=== PATIENT | male | born 1985 | race American Indian/Alaskan Native ===

== ENCOUNTER 2018-08-19 01:31 | Emergency (ER) | payer SELFPAY ==
--- NOTE | 2018-08-19 02:34 | XRay Report ---
FINAL REPORT EXAM: XR CHEST ROUTINE 2V HISTORY: Chest Pain TECHNIQUE: PA and lateral views of the chest were submitted. FINDINGS: The heart size and vascularity appear normal. The lungs are clear. Pleural fluid is not seen. The bon es and soft tissues appear well maintained. IMPRESSION: No acute cardiopulmonary process.
[2018-08-19 02:40] LABS: Basophils # (Auto) 0.1 K/mm3 (0.0-0.1); Basophils % (Auto) 0.8 % (0.0-1.8); Eosinophils # (Auto) 0.1 K/mm3 (0.0-0.4); Eosinophils % (Auto) 1.7 % (0.0-4.3); Hematocrit 44.9 % (35.5-45.6); Hemoglobin 14.8 gm/dl (11.8-15.2); Lymphocytes # (Auto) 2.6 K/mm3 (1.2-5.4); Lymphocytes % (Auto) 30.3 % (13.4-35.0); Mean Corpuscular HGB Conc 33 % (32-34); Mean Corpuscular Volume 86 fl (84-94); Monocytes # (Auto) 0.6 K/mm3 (0.0-0.8); Monocytes % (Auto) 7.5 % (0.0-7.3); Platelet Count 208 K/mm3 (140-440); Red Blood Count 5.21 M/mm3 (3.65-5.03); Red Cell Distribution Width 14.9 % (13.2-15.2)
[2018-08-19 02:57] LABS: BUN/Creatinine Ratio 12; Blood Urea Nitrogen 13 mg/dL (9-20); Hemolysis Index 42
--- NOTE | 2018-08-19 04:14 | Emergency Department Report ---
ED Chest Pain HPI - General Chief Complaint: Chest Pain Stated Complaint: CHEST PAIN DIFFICULTY BREATHING Time Seen by Provider: 08/19/18 04:13 Source: patient, family Mode of arrival: Ambulatory Limitations: No Limitations - History of Present Illness Initial Comments: This is a 32-year-old male here report that he has chest pain that began approximately 2 hours ago. He said he is had similar pain in the past but is different. He reports that he has some shortness of breath which she did not tell them in triage area. Patient has a history of asthma but denies any coughing or wheezing. Denies any fever or chills or nausea or vomiting. Pain is located to mid chest. Pain is intermittent and no alleviating factors and no exacerbating factors. Denies pain with inspiration. Denies any recent long distance travel, convalescent period, history of blood clots or family history of blood clot. Denies taking any hormones at any recent surgery MD Complaint: chest pain -: Last night Onset: during rest Pain Location: substernal Pain Radiation: none Severity: moderate Severity scale (0 -10): 6 Quality: heaviness, squeezing Consistency: intermittent Improves With: nothing Worsens With: nothing Context: other (unknown) re: denies: nausea, vomting, diaphoresis, dyspnea, sense of impending doom Other Symptoms: denies: cough, fever, syncope, rash, acid taste in mouth, leg swelling, palpitations, burping Treatments Prior to Arrival: none Aspirin use within the Past 7 Days: (0) No - Related Data On Oral Contraceptives: No Previous Rx's Medication Instructions Recorded Last Taken Type Ibuprofen [Motrin] 800 mg PO Q8HR PRN #12 tablet 08/19/18 Unknown Rx Allergies Allergy/AdvReac Type Severity Reaction Status Date / Time No Known Allergies Allergy Unverified 08/19/18 01:55 Heart Score - HEART Score History: Slightly suspicious EKG: Normal Age: < 45 Risk factors: No known risk factors Troponin: < normal limit HEART Score: 0 - Critical Actions Critical Actions: 0-3 pts:0.9-1.7%risk of adverse cardiac event.Candidate for discharge ED Review of Systems ROS: Stated complaint: CHEST PAIN DIFFICULTY BREATHING Other details as noted in HPI Constitutional: denies: chills, fever Eyes: denies: eye discharge ENT: denies: ear pain, throat pain, congestion Respiratory: shortness of breath, SOB with exertion, SOB at rest. denies: cough, stridor, wheezing Cardiovascular: chest pain. denies: palpitations, dyspnea on exertion, edema, syncope Gastrointestinal: denies: abdominal pain, nausea, vomiting, diarrhea, constipation Musculoskeletal: denies: back pain, arthralgia, myalgia Skin: denies: rash Neurological: denies: headache ED Past Medical Hx - Past Medical History Previous Medical History?: Yes Hx Asthma: Yes - Surgical History Past Surgical History?: No - Family History Family history: hypertension - Social History Smoking Status: Never Smoker Substance Use Type: None - Medications Home Medications: Home Medications Medication Instructions Recorded Confirmed Last Taken Type Ibuprofen [Motrin] 800 mg PO Q8HR PRN #12 tablet 08/19/18 Unknown Rx ED Physical Exam - General Limitations: No Limitations General appearance: alert, in no apparent distress - Head Head exam: Present: atraumatic (normal exam), normocephalic, normal inspection, other - Eye Eye exam: Present: normal appearance, PERRL, EOMI Pupils: Present: normal accommodation - ENT ENT exam: Present: normal exam, normal orophraynx, mucous membranes moist, TM's normal bilaterally, normal external ear exam - Neck Neck exam: Present: normal inspection, full ROM. Absent: tenderness, lymphadenopathy - Respiratory Respiratory exam: Present: normal lung sounds bilaterally. Absent: respiratory distress, wheezes, rales, rhonchi, stridor, chest wall tenderness, accessory muscle use, prolonged expiratory - Cardiovascular Cardiovascular Exam: Present: regular rate, normal rhythm, normal heart sounds. Absent: systolic murmur, diastolic murmur - GI/Abdominal GI/Abdominal exam: Present: soft, normal bowel sounds. Absent: distended, tenderness, guarding, rebound, rigid - Extremities Exam Extremities exam: Present: normal inspection, full ROM, normal capillary refill, other (No cce. + 2 pulses in all extremities, no neurovascular compromise). Absent: tenderness, pedal edema, joint swelling, calf tenderness - Back Exam Back exam: Present: normal inspection, full ROM, other (ambulates without any difficulties). Absent: tenderness, CVA tenderness (R), CVA tenderness (L), muscle spasm, rash noted - Neurological Exam Neurological exam: Present: alert, oriented X3, normal gait, reflexes normal. Absent: motor sensory deficit - Psychiatric Psychiatric exam: Present: normal affect, normal mood - Skin Skin exam: Present: warm, dry, intact, normal color. Absent: rash ED Course Vital Signs 08/19/18 08/19/18 01:41 01:52 Temperature 97.4 F L 97.4 F L Pulse Rate 76 80 Respiratory 18 18 Rate Blood Pressure 117/64 117/64 O2 Sat by Pulse 97 97 Oximetry - Reevaluation(s) Reevaluation #1: 08/19/18 04:21 Patient is currently stable. Lab work is stable. He reported when he had chest pain he was having shortness of breath. D-dimer ordered and awaiting results. No distress at present and chest x-rays negative Reevaluation #2: 08/19/18 05:36 Patient remained stable in d-dimer is negative. EDGARDO score - Edgardo Score Age > 65: (0) No Aspirin use within the Past 7 Days: (0) No 3 or more CAD Risk Factors: (0) No 2 or more Angina events in past 24 hrs: (0) No Known CAD with more than 50% Stenosis: (0) No Elevated Cardiac Markers: (0) No ST Deviation Greater than 0.5mm: (0) No EDGARDO Score: 0 ED Medical Decision Making - Lab Data Result diagrams: 08/19/18 02:05 08/19/18 02:05 Lab Results 08/19/18 08/19/18 Range/Units 02:05 02:05 WBC 8.5 (4.5-11.0) K/mm3 RBC 5.21 H (3.65-5.03) M/mm3 Hgb 14.8 (11.8-15.2) gm/dl Hct 44.9 (35.5-45.6) % MCV 86 (84-94) fl MCH 28 (28-32) pg MCHC 33 (32-34) % RDW 14.9 (13.2-15.2) % Plt Count 208 (140-440) K/mm3 Lymph % (Auto) 30.3 (13.4-35.0) % [place] % (Auto) 7.5 H (0.0-7.3) % Eos % (Auto) 1.7 (0.0-4.3) % Baso % (Auto) 0.8 (0.0-1.8) % Lymph # 2.6 (1.2-5.4) K/mm3 [place] # 0.6 (0.0-0.8) K/mm3 Eos # 0.1 (0.0-0.4) K/mm3 Baso # 0.1 (0.0-0.1) K/mm3 Seg Neutrophils % 59.7 (40.0-70.0) % Seg Neutrophils # 5.1 (1.8-7.7) K/mm3 Sodium 137 (137-145) mmol/L Potassium 4.3 (3.6-5.0) mmol/L Chloride 100.7 (98-107) mmol/L Carbon Dioxide 24 (22-30) mmol/L Anion Gap 17 mmol/L BUN 13 (9-20) mg/dL Creatinine 1.1 (0.8-1.5) mg/dL Estimated GFR > 60 ml/min BUN/Creatinine Ratio 12 % Glucose 102 H (75-100) mg/dL Calcium 9.0 (8.4-10.2) mg/dL Troponin T < 0.010 (0.00-0.029) ng/mL - EKG Data -: EKG Interpreted by Me (attending ED physician) EKG shows normal: sinus rhythm (sinus arrhythmia at 66 bpm) Rate: normal - EKG Data Interpretation: no acute changes, normal EKG - Radiology Data Radiology results: report reviewed Two-view chest x-ray dictated by radiologist and report reviewed by myself. Please see details below Findings [facility] [address] [place] [address] XRay Report Signed Patient: LEONIDAS URIOSTEGUI MR#: [id number] : 1985 Acct:[id number] Age/Sex: 32 / M ADM Date: 08/19/18 Loc: ED Attending Dr: Ordering Physician: KATARZYNA VILLA MD Date of Service: 08/19/18 Procedure(s): XR chest routine 2V Accession Number(s): [id number] cc: ED MD DAISY Fluoro Time In Minutes: FINAL REPORT EXAM: XR CHEST ROUTINE 2V HISTORY: Chest Pain TECHNIQUE: PA and lateral views of the chest were submitted. FINDINGS: The heart size and vascularity appear normal. The lungs are clear. Pleural fluid is not seen. The bones and soft tissues appear well maintained. IMPRESSION: No acute cardiopulmonary process. Transcribed By: RB Dictated By: RUTH AREVALO MD Electronically Authenticated By: RUTH AREVALO MD Signed Date/Time: 08/19/18233 DD/ 5 TD/TT: 08/19/18235 - Medical Decision Making This is a 32-year-old male here report that he is having chest pain and that he is here to be evaluated. Physical finding for normal exam. Chest x-ray shows no acute findings as dictated by radiology and report reviewed by myself. Patient had CBC and, BMP, troponin and d-dimer which were all normal values. I discussed chest x-ray results with patient along with lab results and I told him that he needed to follow-up with a grease cup filler on also a primary care doctor for further evaluation and treatment. He does not have a primary care doctor so referring to some outside Medical Center. I discussed the patient that if his chest x-ray returned to return to the emergency room otherwise follow-up with grease cup filler and primary care in 2 days and he voiced understanding. Patient discharged home in stable condition with prescription for Motrin. Vital signs stable and afebrile - Differential Diagnosis ACS, PE, pleurisy, PNA, costochondritis, atypical chest pain Critical care attestation.: If time is entered above; I have spent that time in minutes in the direct care of this critically ill patient, excluding procedure time. ED Disposition Clinical Impression: Atypical chest pain Disposition: DC-01 TO HOME OR SELFCARE Is pt being admited?: No Does the pt Need Aspirin: No Condition: Stable Instructions: Chest Pain (ED) Additional Instructions: Please follow up with primary care and grease cup filler as discussed within 2 days. Take medication as prescribed He can also try to take antacid such as [id number] Zantac when he have pain to see if it is relief. If her condition worsens, please return to the emergency room Referrals: [facility] [Outside] - 08/21/18 KOLTON YOO MD [Staff Physician] - 08/21/18 Forms: Work/School Release Form(ED), Accompanied Note
[2018-08-19 05:53] VITALS: BP 112/76
== END 2018-08-19 05:53 | disposition home or self-care (01) ==
LOC: ED 01:31
DX: R07.89 Other chest pain (principal); J45.909 Unspecified asthma, uncomplicated
CPT/HCPCS: 36415; 71046; 80048; 84484; 85025; 85379; 93005; 93010